=== PATIENT | male | born 2000 | race Two or more races ===

== ENCOUNTER 2025-01-21 15:20 | Emergency (ER) | payer OTHER ==
[2025-01-21] MEDS: Acetaminophen/HYDROcodone 325-10 MG Tab PO ONE (15:38)
[2025-01-21] MEDS: Diphtheria,Pertussis(Acell),Tetanus Vaccine 0.5 ML Syringe IM ONE (15:40)
== END 2025-01-21 16:50 ==
LOC: KA.ED 15:20
DX: S68.621A Partial traumatic transphalangeal amputation of left index finger, initial encounter (principal); Z23 Encounter for immunization; W20.8XXA Other cause of strike by thrown, projected or falling object, initial encounter
CPT/HCPCS: 73140-F4; 90471; 90715; 96372; 99283; 99284-25; A9270-GY; J0690